=== PATIENT | male | born 1990 | race Caucasian/White ===

== ENCOUNTER 2023-12-10 22:23 | Emergency (ER) | payer OTHER ==
[~2023-12-10] VITALS: Ht 172.7 cm; Wt 72.6 kg
[2023-12-10 22:28] VITALS: BP_SYST 157; PULSE 99; RESP 20; TEMP 97.3; O2SAT 99
[2023-12-10] MEDS ORDERED: LISINOPRIL 10 MG TABLET (PRINIVIL) ONE (23:29)
[2023-12-10] MEDS: LISINOPRIL 10 MG TABLET (PRINIVIL) PO ONE (23:36)
[2023-12-10 23:45] LABS: BASOPHILS # (AUTO) 0.1 K/uL (0.0-0.2); BASOPHILS % (AUTO) 0.6 % (0.0-2.0); EOSINOPHILS # (AUTO) 0.2 K/uL (0.0-0.4); EOSINOPHILS % (AUTO) 1.8 % (0.0-4.0); HEMATOCRIT 46.2 % (36-54); HEMOGLOBIN 16.1 g/dL (14.0-18.0); LYMPHOCYTES # (AUTO) 2.3 K/uL (1.0-5.5); MEAN CORPUSCULAR HEMOGLOBIN 31 pg (27-31); MEAN CORPUSCULAR HGB CONC 35 % (32-36); MEAN CORPUSCULAR VOLUME 88 fL (79.0-98.0); MONOCYTES # (AUTO) 0.8 K/uL (0.0-1.0); MONOCYTES % (AUTO) 6.9 % (1.7-9.3); NEUTROPHILS # (AUTO) 7.8 K/uL (1.8-7.7); NEUTROPHILS % (AUTO) 69.7 % (40.0-70.0); PLATELET COUNT (AUTO) 261 K/uL (130-430); RED BLOOD CELL COUNT(AUTO) 5.25 MIL/uL (4.2-6.2); RED CELL DISTRIBUTION WIDTH 13.3 % (9.0-15.0); WHITE BLOOD COUNT (AUTO) 11.2 K/uL (4.8-10.8)
[2023-12-11 00:22] LABS: URINE AMPHETAMINE POSITIVE (NEG <=500)
[2023-12-11 00:23] LABS: BARBITURATE, URINE NEGATIVE (NEG <=200); BENZODIAZEPINE, URINE NEGATIVE (NEG <=150); CANNABINOID, URINE NEGATIVE (NEG <=50); COCAINE, URINE NEGATIVE (NEG <=150); METHAMPHETAMINES SCREEN,URINE POSITIVE (NEG <=500); OPIATE, URINE NEGATIVE (NEG <=100); PHENCYCLIDINE SCREEN,URINE NEGATIVE (NEG <=25); UR TRICYCLIC ANTIDEPRESSANTS NEGATIVE (NEG <=300); URINE METHADONE NEGATIVE (NEG <=200); URINE OXYCODONE SCREEN NEGATIVE (NEG <=100)
[2023-12-11] MEDS ORDERED: cloNIDine HCL 0.1 MG TABLET ONE (00:41)
[2023-12-11] MEDS: cloNIDine HCL 0.2 MG TABLET PO ONE (00:45)
[2023-12-11 00:52] LABS: ALANINE AMINOTRANSFERASE 46 U/L (12-78); ALBUMIN 4.2 g/dL (3.4-4.8); ANION GAP 9 (5-15); ASPARTATE AMINOTRANSFERASE 17 U/L (10-37); BILIRUBIN,DIRECT 0.1 mg/dL (0.0-0.3); CALCIUM 9.7 mg/dL (8.4-11.0); CARBON DIOXIDE 31 mmol/L (23-29); CHLORIDE 103 mmol/L (98-107); CREATININE 1.07 mg/dL (0.55-1.30); GFR AFRICAN AMERICAN 102 mL/min (>90); GFR NON AFRICAN-AMERICAN 84 mL/min (>90); GLUCOSE 114 mg/dL (74-106); POTASSIUM 3.9 mmol/L (3.5-5.1); SODIUM SERUM 143 mmol/L (136-145); TOTAL BILIRUBIN 0.8 mg/dL (0.0-1.0); UREA NITROGEN, BLOOD 10 mg/dL (8-21)
[2023-12-11] MEDS: MAG-AL HYDROX/SIMETH 30 ML UDC PO ONE (01:05)
[2023-12-11] MEDS ORDERED: LISI20TA30 PO (02:20)
[2023-12-11] MEDS ORDERED: AMLO5TAB4 PO (02:20)
[2023-12-11 02:29] VITALS: BP_SYST 149; PULSE 69; RESP 20; TEMP 98.4; O2SAT 95
== END 2023-12-11 02:29 | disposition home or self-care (01) ==
LOC: SED 22:23
DX: R07.89 Other chest pain (principal); I10 Essential (primary) hypertension; F15.129 Other stimulant abuse with intoxication, unspecified; R06.02 Shortness of breath; R20.0 Anesthesia of skin; Z79.899 Other long term (current) drug therapy
CPT/HCPCS: 36415; 71045; 80048; 80076; 80307; 83880; 84484; 85025; 93005; 99285